=== PATIENT | female | born 1970 | race Caucasian/White ===

== ENCOUNTER 2023-06-24 20:37 | Emergency (ER) | payer OTHER, SELFPAY ==
[2023-06-24] VITALS (28 sets, daily range): BP systolic 142–192; BP diastolic 85–111; PULSE 77–101; RESP 4–20; TEMP 36.9; O2SAT 95–100; BMI 28.7
--- NOTE | 2023-06-24 21:38 | ECG_ITS ---
[facility] Test Date: 2023-06-24 Pat Name: KAYLEE COOK Department: Room: - Gender: Female [employer]: : 1970 Requested By: Rito Higgins Order Number: [id number] Reading MD: NATASHA JAMA Measurements Intervals [place] Rate: 88 P: 70 WA: 170 QRS: 54 QRSD: 78 T: 60 QT: 346 QTc: 392 Interpretive Statements 1100 Sinus rhythm 9110 normal ECG No previous ECG available for comparison Electronically Signed On 06-25-2023 6:59:47 EST by NATASHA JAMA
--- NOTE | 2023-06-24 21:39 | XR_ITS ---
The [address] [address] Patient Name: KAYLEE COOK MRN: [id number] date: 1970 Sex: F Assigned Patient Location: ER Current Patient Location: ED.MAIN Accession/Order Number: [id number] Exam Date: 06/24/2023 21:55 Report Date: 06/24/2023 22:48 At the request of: PIPE DENNIS Procedure: XR chest 1V EXAMINATION: XR chest 1V, , 06/24/2023 9:55 PM EST INDICATION: palpitations HISTORY: Ordering Provider Reason for Exam: palpitations Technologist Note: Additional: COMPARISON: None. TECHNIQUE: Chest x-ray: One view. FINDINGS: No pneumothorax, pleural effusion or focal airspace consolidation. Heart is normal in size. Bony thorax is unremarkable. XR/XR chest 1V IMPRESSION: No acute cardiopulmonary process. Electronically authenticated by: NEGAR SAUL Date: 06/24/2023 22:48
[2023-06-24 22:18] LABS: Basophils Absolute Auto 0.1 10^3/uL (0.0-0.1); Basophils Percent Auto 0.5 % (0.2-2.0); Eosinophils Absolute Auto 0.1 10^3/uL (0.0-0.7); Eosinophils Percent Auto 0.8 % (0.9-7.0); Hematocrit 40.3 % (36.0-48.0); Hemoglobin 12.9 g/dL (12.0-16.0); Immature Granulocytes Abs Auto 0.04 10^3/uL (0.00-0.03); Immature Granulocytes Pct Auto 0.4 % (0.0-0.5); Lymphocytes Absolute Auto 1.4 10^3/uL (1.2-3.8); Lymphocytes Percent Auto 13.2 % (20.5-60.0); Mean Corpuscular Volume 87.4 fL (81.0-99.0); Mean Platelet Volume 10.4 fL (9.5-13.5); Monocytes Absolute Auto 0.6 10^3/uL (0.3-0.8); Monocytes Percent Auto 5.3 % (1.7-12.0); Neutrophils Absolute Auto 8.7 10^3/uL (1.4-6.5); Neutrophils Percent Auto 79.8 % (43.0-75.0); Platelet Count 341 10^3/uL (150-450); Red Blood Count 4.61 10^6/uL (4.20-5.40); Red Cell Distribution Width 14.1 % (11.0-15.0); White Blood Count 10.9 10^3/uL (4.0-11.0)
[2023-06-24 22:42] LABS: Alanine Aminotransferase 19 U/L (14-59); Albumin Globulin Ratio 0.8; Albumin Level 3.9 g/dL (3.4-5.0); Alkaline Phosphatase 81 U/L (46-116); Anion Gap 14.2; Aspartate Amino Transferase 17 U/L (15-37); BUN Creatinine Ratio 10.2; Bilirubin Total 0.4 mg/dL (0.2-1.0); Carbon Dioxide 28.5 mmol/L (21.0-32.0); Chloride 102 mmol/L (98-107); Estimated GFR (African America >60 (>=60); Estimated GFR (Non-African Ame >60 (>=60); Globulin 4.6 g/dL; Glucose 114 mg/dL (74-106); Magnesium 2.2 mg/dL (1.8-2.4); Potassium 3.7 mmol/L (3.5-5.1); Sodium 141 mmol/L (136-145); Total Protein 8.5 g/dL (6.4-8.2)
[2023-06-24] MEDS: LABETALOL HCL 20 MG/4 ML SYRINGE 10 MG IVP (22:50)
--- NOTE | 2023-06-24 23:04 | ED_ITS ---
HPI - General Adult General Chief complaint: Recheck/Abnormal Lab/Rx Stated complaint: Heart Racing Time Seen by Provider: 06/24/23 21:00 Source: patient Mode of arrival: walk-in Limitations: no limitations History of Present Illness HPI narrative: This afternoon the patient suddenly developed sensation of palpitation, which she described as irregular and racing heart. She denied any chest pain or shortness of breath with this. She felt slightly dizzy. She denied any recent injury or illness. She said she had been eating and drinking normally. She does not take any medications at home. She has not seen a physician in many years. According to the , she had previously been found to have hypertension but refused to take any medications to treat it and has not had any follow-up for reassessment. She has elevated blood pressure in the emergency department. Shortly after arrival, her symptoms had subsided and she no longer had sensation of palpitation. She admits to increased stress at home with the recent loss of a loved 1 as well as pending loss of another person that she is very close to -her boss, who apparently has some form of leukemia. Related Data Previous Rx's Medication Instructions Recorded lisinopril 10 mg tablet 10 mg PO DAILY #30 tabs 06/24/23 Allergies Allergy/AdvReac Type Severity Reaction Status Date / Time No Known Drug Allergies Allergy Verified 06/24/23 20:52 [facility] Social History Smoking status: Never smoker Exam Narrative Exam Narrative: Nurses notes and vital signs reviewed and patient is not hypoxic. afebrile General: Well-appearing and in no apparent distress. Skin: Warm, dry, no pallor noted. Head: Normocephalic, atraumatic. Eye: Pupils are equal, round and EOMI. No scleral icterus. Ears, Nose, Mouth, and Throat: Oral mucosa is moist Cardiovascular: Regular Rate and Rhythm without murmur, gallop or rub. Respiratory: No accessory muscle use or respiratory distress. Lungs are clear to auscultation, no wheezing, rales or rhonchi Musculoskeletal: normal ROM, no calf or popliteal tenderness, no lower extremity edema/swelling GI: Abdomen is soft, non-distended. Normal bowel sounds. No tenderness to palpation. No rebound, guarding, or rigidity noted. Neurological: A&O x4. No cranial nerve dysfunction observed. No truncal ataxia. Moves all extremities. Sensation intact. Psychiatric: Cooperative and interactive. Normal mood and affect. Constitutional Vital Signs, click to edit/add: Last Vital Signs Temp 98.4 F 06/24/23 20:46 Pulse 85 06/24/23 22:50 Resp 20 06/24/23 21:50 BP 151/90 H 06/24/23 22:51 Pulse Ox 97 06/24/23 22:50 O2 Del Method Room Air 06/24/23 20:46 Course Vital Signs Vital signs: Vital Signs Temperature 98.4 F 06/24/23 20:46 Pulse Rate 96 H 06/24/23 20:46 Respiratory Rate 18 06/24/23 20:46 Blood Pressure 192/110 H 06/24/23 20:46 Pulse Oximetry 97 06/24/23 20:46 Oxygen Delivery Method Room Air 06/24/23 20:46 Temperature 98.4 F 06/24/23 20:46 Pulse Rate 85 06/24/23 22:50 Respiratory Rate 20 06/24/23 21:50 Blood Pressure 151/90 H 06/24/23 22:51 Pulse Oximetry 97 06/24/23 22:50 Oxygen Delivery Method Room Air 06/24/23 20:46 Medical Decision Making MDM Narrative Medical decision making narrative: Patient was placed on worship leader and EKG obtained. Blood drawn and sent for evaluation. Chest x-ray obtained. Workup was unremarkable and the patient was given reassurance. I do believe the patient has hypertension and discussed this with her. She was prescribed lisinopril to take at home and given referral information for local primary care physicians or take new patients. Discussed return to the emergency department if she has return of symptoms or anything else worrisome Lab Data Lab results reviewed: Yes I reviewed the patient's lab results Labs: Lab Results 06/24/23 Range/Units 22:06 WBC 10.9 (4.0-11.0) 10^3/uL RBC 4.61 (4.20-5.40) 10^6/uL Hgb 12.9 (12.0-16.0) g/dL Hct 40.3 (36.0-48.0) % MCV 87.4 (81.0-99.0) fL MCH 28.0 (26.7-34.0) pg MCHC 32.0 (29.9-35.2) g/dL RDW 14.1 (11.0-15.0) % Plt Count 341 (150-450) 10^3/uL MPV 10.4 (9.5-13.5) fL Neut % (Auto) 79.8 H (43.0-75.0) % Lymph % (Auto) 13.2 L (20.5-60.0) % [place] % (Auto) 5.3 (1.7-12.0) % Eos % (Auto) 0.8 L (0.9-7.0) % Baso % (Auto) 0.5 (0.2-2.0) % Neut # (Auto) 8.7 H (1.4-6.5) 10^3/uL Lymph # (Auto) 1.4 (1.2-3.8) 10^3/uL [place] # (Auto) 0.6 (0.3-0.8) 10^3/uL Eos # (Auto) 0.1 (0.0-0.7) 10^3/uL Baso # (Auto) 0.1 (0.0-0.1) 10^3/uL Abs Immat Gran (auto) 0.04 H (0.00-0.03) 10^3/uL Imm/Tot Granulo (auto) 0.4 (0.0-0.5) % Sodium 141 (136-145) mmol/L Potassium 3.7 (3.5-5.1) mmol/L Chloride 102 (98-107) mmol/L Carbon Dioxide 28.5 (21.0-32.0) mmol/L Anion Gap 14.2 BUN 9.0 (7.0-18.0) mg/dL Creatinine 0.88 (0.55-1.02) mg/dL Est GFR ( Amer) >60 (>=60) Est GFR (Non-Af Amer) >60 (>=60) BUN/Creatinine Ratio 10.2 Glucose 114 H (74-106) mg/dL Calcium 10.0 (8.5-10.1) mg/dL Magnesium 2.2 (1.8-2.4) mg/dL Total Bilirubin 0.4 (0.2-1.0) mg/dL AST 17 (15-37) U/L ALT 19 (14-59) U/L Alkaline Phosphatase 81 (46-116) U/L Total Protein 8.5 H (6.4-8.2) g/dL Albumin 3.9 (3.4-5.0) g/dL Globulin 4.6 g/dL Albumin/Globulin Ratio 0.8 Imaging Data Chest x-ray: Radiologist's impression: Patient Name: KAYLEE COOK MRN: [id number] date: 1970 Sex: F Assigned Patient Location: ER Current Patient Location: ED.MAIN Accession/Order Number: [id number] Exam Date: 06/24/2023 21:55 Report Date: 06/24/2023 22:48 At the request of: PIPE DENNIS Procedure: XR chest 1V EXAMINATION: XR chest 1V, , 06/24/2023 9:55 PM EST INDICATION: palpitations HISTORY: Ordering Provider Reason for Exam: palpitations Technologist Note: Additional: COMPARISON: None. TECHNIQUE: Chest x-ray: One view. FINDINGS: No pneumothorax, pleural effusion or focal airspace consolidation. Heart is normal in size. Bony thorax is unremarkable. IMPRESSION: No acute cardiopulmonary process. Electronically authenticated by: NEGAR SAUL Date: 06/24/2023 22:48 ECG Data Attestation: I personally reviewed and interpreted this ECG as follows: Interpretation: EKG interpretation: Emergency Department physician interpretation. Normal sinus rhythm at 88bpm. Normal axis, normal intervals and no ST segment elevation or depression. Normal EKG Discharge Plan Discharge Chief Complaint: Recheck/Abnormal Lab/Rx Clinical Impression: Palpitations, Hypertension Patient Disposition: Home, Self-Care Time of Disposition Decision: 23:08 Prescriptions / Home Meds: New lisinopril 10 mg tablet 10 mg PO DAILY Qty: 30 0RF Instructions: Heart Palpitations (ED), Hypertension (ED) Stand Alone Forms: Portal Instructions Referrals: Physician,Non-Staff, MD [Primary Care Provider] - 1 week
== END 2023-06-24 23:27 | disposition home or self-care (01) ==
PROVIDERS: Emergency Provider Emergency Medicine
DX: R00.2 Palpitations (principal); I10 Essential (primary) hypertension
CPT/HCPCS: 36415; 71045; 80053; 83735; 85025; 93005; 96374; 99285; J1290